=== PATIENT | female | born 1970 | race Two or more races ===

== ENCOUNTER 2020-03-13 18:01 | Emergency (ER) | payer MEDICAID ==
[~2020-03-13] VITALS: Ht 165.1 cm; Wt 95.0 kg
[2020-03-13 18:07] VITALS: BP 185/104
== END 2020-03-13 18:54 | disposition home or self-care (01) ==
LOC: ER 18:02
DX: J02.9 Acute pharyngitis, unspecified (principal); R51.9 Headache, unspecified; R09.89 Other specified symptoms and signs involving the circulatory and respiratory systems; Z20.828 Contact with and (suspected) exposure to other viral communicable diseases; J45.909 Unspecified asthma, uncomplicated; M19.90 Unspecified osteoarthritis, unspecified site
CPT/HCPCS: 36415; 71045; 87635; 99284

== ENCOUNTER 2023-09-11 10:17 | Emergency (ER) | payer MEDICAID, OTHER ==
[~2023-09-11] VITALS: Ht 162.6 cm; Wt 70.0 kg
[2023-09-11 10:21] VITALS: BP 156/81; PULSE 101; TEMP 97.3; O2SAT 97
[2023-09-11] MEDS ORDERED: ADV50250 INH (13:17)
[2023-09-11 13:39] VITALS: RESP 20
== END 2023-09-11 13:42 | disposition home or self-care (01) ==
LOC: ER 10:18
DX: R05.9 Cough, unspecified (principal); Z79.899 Other long term (current) drug therapy
CPT/HCPCS: 71046; 99283

== ENCOUNTER 2023-11-24 12:09 | Emergency (ER) | payer MEDICAID ==
[~2023-11-24] VITALS: Ht 160 cm; Wt 94.0 kg
[2023-11-24] MEDS ORDERED: tetanus & diphtheria toxoid (Td) vaccine 0.5ml IMVAC ONE (14:25)
[2023-11-24] MEDS: LIDOcaine 1% W/epiNEPHrine 1:100,000 20ml vial SQ ONE (14:37)
[2023-11-24] MEDS: TETanus/Pertussis (Acell)/Diphther VAC/PF (Tdap-Adult) 0.5ml syringe IMVAC ONE (14:37)
[2023-11-24] MEDS ORDERED: CEPH-585 PO (16:30)
[2023-11-24] MEDS ORDERED: HYDR-3965 PO (16:30)
[2023-11-24 16:35] VITALS: BP 134/78; PULSE 68; RESP 16; TEMP 97.7; O2SAT 99
== END 2023-11-24 16:36 | disposition home or self-care (01) ==
LOC: ER 12:10
DX: S61.211A Laceration without foreign body of left index finger without damage to nail, initial encounter (principal); J45.909 Unspecified asthma, uncomplicated; M19.90 Unspecified osteoarthritis, unspecified site; W26.8XXA Contact with other sharp object(s), not elsewhere classified, initial encounter; Y93.89 Activity, other specified; Y92.89 Other specified places as the place of occurrence of the external cause; Y99.8 Other external cause status
CPT/HCPCS: 12001; 90471; 90715; 99283; A6222; A6258

== ENCOUNTER 2024-04-28 11:36 | Emergency (ER) | payer MEDICAID ==
[~2024-04-28] VITALS: Ht 160 cm; Wt 96.8 kg
[2024-04-28 12:29] VITALS: BP 133/84; PULSE 82; RESP 18; TEMP 97.3; O2SAT 96
[2024-04-28] MEDS ORDERED: PRED20TA PO (15:21)
[2024-04-28] MEDS ORDERED: GABA-535 PO (15:21)
[2024-04-28] MEDS: dexamethasone sod phosphate 10mg/ml inj IM STA (15:33)
== END 2024-04-28 15:36 | disposition home or self-care (01) ==
LOC: ER 11:37
DX: M70.71 Other bursitis of hip, right hip (principal); M54.31 Sciatica, right side; J45.909 Unspecified asthma, uncomplicated; M19.90 Unspecified osteoarthritis, unspecified site; M79.7 Fibromyalgia; Y93.89 Activity, other specified
CPT/HCPCS: 96372; 99283; J1100